=== PATIENT | female | born 2000 | race Caucasian/White ===

== ENCOUNTER 2020-05-22 02:57 | Emergency (ER) | payer OTHER ==
[~2020-05-22 02:57] MED LIST: ANTIVERT 25MG T25 MG PO; BACTRIM DS TAB1 EACH PO; CORTISPORIN OTI10 M1 EARLF; KEFLEX CAP 500500 MG PO; OMNICEF 300 MG300 MG PO; TAMIFLU75 MG PO; ZOFRAN4 MG PO
[2020-05-22 03:38] LABS: HEMOGLOBIN 14.9 gm/dl (12.3-15.3); RED BLOOD COUNT 4.97 M/UL (4.00-5.10); WHITE BLOOD COUNT 8.2 K/UL (4.5-11.0)
[2020-05-22 04:03] LABS: BUN/CREATININE RATIO 18 (0-10)
== END 2020-05-22 09:50 | disposition home or self-care (01) ==
LOC: ER1 02:57
PROVIDERS: Student in an Organized Health Care Education/Training Program
DX: F15.129 Other stimulant abuse with intoxication, unspecified (principal)
CPT/HCPCS: 80053; 80307; 82550; 82553; 82803; 83735; 84100; 84702; 85025; 93005; 96374; 99285; G0480; J2310

== ENCOUNTER 2020-08-25 04:46 | Emergency (ER) | payer OTHER | END 2020-08-25 08:32 | disposition home or self-care (01) | LOC: ER1 04:46 | PROVIDERS: Family Medicine | DX: S10.93XA Contusion of unspecified part of neck, initial encounter (principal); F17.200 Nicotine dependence, unspecified, uncomplicated; Z88.0 Allergy status to penicillin; Y04.2XXA Assault by strike against or bumped into by another person, initial encounter | CPT/HCPCS: 72125; 80307; 99284 ==

== ENCOUNTER 2021-09-25 10:39 | Emergency (ER) | payer OTHER ==
[2021-09-25 12:12] LABS: HEMOGLOBIN 15.5 gm/dl (12.3-15.3); RED BLOOD COUNT 4.98 M/UL (4.00-5.10); WHITE BLOOD COUNT 11.5 K/UL (4.5-11.0)
[2021-09-25 12:29] LABS: BUN/CREATININE RATIO 19 (0-10)
[2021-09-25] MEDS ORDERED: OMNICEF 300 MG300 MG PO (12:39)
== END 2021-09-25 13:02 | disposition home or self-care (01) ==
LOC: ER1 10:39
PROVIDERS: Physician Assistant
DX: O20.9 Hemorrhage in early pregnancy, unspecified (principal); O23.41 Unspecified infection of urinary tract in pregnancy, first trimester; N39.0 Urinary tract infection, site not specified; O99.331 Smoking (tobacco) complicating pregnancy, first trimester; Z3A.11 11 weeks gestation of pregnancy; Z88.0 Allergy status to penicillin
CPT/HCPCS: 80053; 81001; 84702; 85025; 86900; 86901; 87086; 99284